=== PATIENT | male | born 2000 | race Two or more races ===

== ENCOUNTER 2022-02-13 00:34 | Emergency (ER) | payer BC ==
[~2022-02-13] VITALS: Ht 195.6 cm; Wt 115.9 kg
[2022-02-13 00:46] VITALS: BP 144/68
--- NOTE | 2022-02-13 01:02 | PHYS DOC ---
Past Medical History Past Surgical History: No Surgical History Smoking Status: Never Smoker Alcohol Use: Rarely General Adult EDM: Chief Complaint: DENTAL PROBLEM HPI: HPI: Patient is a 21 year old M who presents with mouth pain. Patient has been experiencing pain in his mouth on and off for over a month, saw dentist for the first time yesterday and was prescribed amoxicillin and NSAIDs. Patient also tried [id number] medication such as Orajel today without any relief. Patient's pain is sharp, comes and goes, worse in his left lower jaw at the base of his teeth. Patient denies any fevers, chills, facial swelling. Patient took Aleve 3 times a day and says that presently he has no pain. Patient requesting stronger pain medication but has been taking because several times a day the pain was very severe. Review of Systems: Review of Systems: Constitutional: Denies fever or chills. [] Eyes: Denies change in visual acuity. [] HENT: Denies nasal congestion or sore throat. [] Respiratory: Denies cough or shortness of breath. [] Cardiovascular: Denies chest pain or edema. [] GI: Denies abdominal pain, nausea, vomiting, bloody stools or diarrhea. [] : Denies dysuria. [] Musculoskeletal: Denies back pain or joint pain. [] Integument: Denies rash. [] Neurologic: Denies headache, focal weakness or sensory changes. [] Endocrine: Denies polyuria or polydipsia. [] Lymphatic: Denies swollen glands. [] Psychiatric: Denies depression or anxiety. [] Heart Score: C/O Chest Pain: No Risk Factors: Risk Factors: DM, Current or recent (<one month) smoker, HTN, HLP, family history of CAD, obesity. Risk Scores: Score 0 - 3: 2.5% MACE over next 6 weeks - Discharge Home Score 4 - 6: 20.3% MACE over next 6 weeks - Admit for Clinical Observation Score 7 - 10: 72.7% MACE over next 6 weeks - Early Invasive Strategies Allergies: Allergies: Allergies Coded Allergies Type Severity Reaction Last Updated Verified ibuprofen Allergy Unknown 02/13/22 Yes Physical Exam: PE: Constitutional: Well developed, well nourished, no acute distress, non-toxic appearance. [] HENT: Normocephalic, atraumatic, bilateral external ears normal, oropharynx moist, no oral exudates, nose normal. [] Mouth: Mild erythema and desquamation of the gums at the base of his left lower molars. No active bleeding or swelling. Eyes: PERRLA, EOMI, conjunctiva normal, no discharge. [] Neck: Normal range of motion, no tenderness, supple, no stridor. [] Cardiovascular:Heart rate regular rhythm, no murmur [] Lungs & Thorax: Bilateral breath sounds clear to auscultation [] Abdomen: Bowel sounds normal, soft, no tenderness, no masses, no pulsatile mass es. [] Skin: Warm, dry, no erythema, no rash. [] Back: No tenderness, no CVA tenderness. [] Extremities: No tenderness, no cyanosis, no clubbing, ROM intact, no edema. [] Neurologic: Alert and oriented X 3, normal motor function, normal sensory function, no focal deficits noted. [] Psychologic: Affect normal, judgement normal, mood normal. [] Current Patient Data: Vital Signs: Vital Signs Date Time Temp Pulse Resp B/P (MAP) Pulse Ox O2 Delivery O2 Flow Rate FiO2 02/13/22 00:46 98.0 55 20 144/68 (93) 97 98.0 EKG: EKG: [] Radiology/Procedures: Radiology/Procedures: [] Course & Med Decision Making: Course & Med Decision Making Patient with chronic dental pain, has already seen a dentist and has been prescribed medication for his symptoms. Explained to the patient that any stronger pain medication would be narcotics and is not appropriate for dental pain. Educated the patient on using NSAIDs and Tylenol in combination for pain relief and recommended he follow-up with his dentist after the weekend if his symptoms not improving on antibiotics and [id number] pain medications. Patient was offered IM Toradol and Tylenol prior to discharge but says he is not currently any pain does not want to take any medication. Chandana Disclaimer: Chandana Disclaimer: This electronic medical record was generated, in whole or in part, using a voice recognition dictation system. Departure Departure Impression: Primary Impression: Chronic dental pain Additional Impression: Gingivitis Disposition: HOME / SELF CARE / HOMELESS Condition: GOOD Patient Instructions: Dental Pain, [id number], Gingivitis, [id number] ISAAC DELEON MD February 13, 2022 01:02
== END 2022-02-13 01:10 | disposition home or self-care (01) ==
LOC: ER 00:34
DX: G89.29 Other chronic pain (principal); K08.89 Other specified disorders of teeth and supporting structures; K05.10 Chronic gingivitis, plaque induced; Z88.6 Allergy status to analgesic agent
CPT/HCPCS: 99281